=== PATIENT | male | born 1995 | race Caucasian/White ===

== ENCOUNTER 2020-08-17 21:22 | Emergency (ER) | payer OTHER ==
[2020-08-18] MEDS ORDERED: PROTONIX 40 MG40 M1 PO (14:58)
== END 2020-08-17 21:45 | disposition left against medical advice (07) ==
LOC: ER1 21:22
DX: K92.0 Hematemesis (principal); Z53.21 Procedure and treatment not carried out due to patient leaving prior to being seen by health care provider

== ENCOUNTER 2020-08-18 09:30 | Emergency (ER) | payer OTHER ==
[2020-08-18 10:41] LABS: HEMOGLOBIN 15.4 gm/dl (14.0-17.5); RED BLOOD COUNT 5.12 M/UL (4.20-5.50)
[2020-08-18 10:52] LABS: BUN/CREATININE RATIO 17 (0-10)
[2020-08-18] MEDS ORDERED: PROTONIX 40 MG40 M1 PO (14:58)
== END 2020-08-18 15:20 | disposition home or self-care (01) ==
LOC: ER1 09:30
PROVIDERS: Physician Assistant
DX: R10.13 Epigastric pain (principal); K92.0 Hematemesis; K31.89 Other diseases of stomach and duodenum; Z90.49 Acquired absence of other specified parts of digestive tract
CPT/HCPCS: 80053; 81001; 82550; 82553; 83874; 84484; 85025; 87040; 87086; 93005; 96374; 99285; C9113; J7030; Q9967

== ENCOUNTER 2020-08-20 15:29 | Emergency (ER) | payer OTHER ==
[~2020-08-20 15:29] MED LIST: PROTONIX 40 MG40 M1 PO
[2020-08-20 19:15] LABS: HEMOGLOBIN 16.3 gm/dl (14.0-17.5); RED BLOOD COUNT 5.3 M/UL (4.20-5.50)
[2020-08-20 19:16] LABS: WHITE BLOOD COUNT 8.5 K/UL (4.5-11.0)
[2020-08-20 19:35] LABS: BUN/CREATININE RATIO 19 (0-10)
[2020-08-20] MEDS ORDERED: ZOFRAN ODT 4 MG4 MG SL (20:34)
== END 2020-08-20 20:43 | disposition home or self-care (01) ==
LOC: ER1 15:29
DX: K29.70 Gastritis, unspecified, without bleeding (principal); Z79.899 Other long term (current) drug therapy
CPT/HCPCS: 80053; 83690; 85025; 96374; 96375; 99284; C9113; J2405

== ENCOUNTER → 2020-09-04 | Day surgery (SDC) | payer OTHER ==
[~2020-09-04] VITALS: Ht 180.3 cm; Wt 65.8 kg
[~2020-09-04] MED LIST changes: +LOTRIMIN CREAM45 GM TOP; +PHENERGAN 25 MG25 M1 PO; +PROMETHAZINE12.5 M1 PO; +ZOFRAN ODT 4 MG4 MG GT; +ZOFRAN ODT 4 MG4 MG SL
[2020-09-05 17:08] LABS: ENDOMYSIAL ANTIBODY IGA Negative (Negative); IMMUNOGLOBULIN A, QN, SERUM 290 mg/dL (90-386); T-TRANSGLUTAMINASE (TTG) IGA <2 U/mL (0-3); T-TRANSGLUTAMINASE (TTG) IGG <2 U/mL (0-5)
== END | disposition home or self-care (01) ==
LOC: OR 08:58
PROVIDERS: Internal Medicine Gastroenterology
DX: K29.50 Unspecified chronic gastritis without bleeding (principal); K21.00 Gastro-esophageal reflux disease with esophagitis, without bleeding; K31.9 Disease of stomach and duodenum, unspecified; Z87.891 Personal history of nicotine dependence; Z88.8 Allergy status to other drugs, medicaments and biological substances; Z79.899 Other long term (current) drug therapy
CPT/HCPCS: 36415; 80076; 82150; 82784; 83690; J2704; J7040

== ENCOUNTER 2020-12-25 03:14 | Emergency (ER) | payer OTHER ==
[~2020-12-25 03:14] MED LIST changes: -LOTRIMIN CREAM45 GM TOP; -PHENERGAN 25 MG25 M1 PO; -PROMETHAZINE12.5 M1 PO; -ZOFRAN ODT 4 MG4 MG GT
[2020-12-25 05:33] LABS: HEMOGLOBIN 13.9 gm/dl (14.0-17.5); RED BLOOD COUNT 4.54 M/UL (4.20-5.50); WHITE BLOOD COUNT 8.8 K/UL (4.5-11.0)
[2020-12-25 06:23] LABS: BUN/CREATININE RATIO 23 (0-10)
[2020-12-25] MEDS ORDERED: PHENERGAN 25 MG25 M1 PO (06:40)
[2020-12-25] MEDS ORDERED: ZOFRAN ODT 4 MG4 MG GT (06:40)
== END 2020-12-25 09:20 | disposition home or self-care (01) ==
LOC: ER1 03:14
PROVIDERS: Family Medicine
DX: R11.15 Cyclical vomiting syndrome unrelated to migraine (principal)
CPT/HCPCS: 80053; 83690; 84439; 84443; 85025; 96374; 99284; J2405

== ENCOUNTER 2020-12-27 12:06 | Emergency (ER) | payer OTHER ==
[~2020-12-27 12:06] MED LIST changes: +PHENERGAN 25 MG25 M1 PO; +ZOFRAN ODT 4 MG4 MG GT
[2020-12-27 13:16] LABS: HEMOGLOBIN 15.7 gm/dl (14.0-17.5); WHITE BLOOD COUNT 7.1 K/UL (4.5-11.0)
[2020-12-27 13:17] LABS: RED BLOOD COUNT 5.07 M/UL (4.20-5.50)
[2020-12-27 13:33] LABS: BUN/CREATININE RATIO 17 (0-10)
== END 2020-12-27 14:44 | disposition home or self-care (01) ==
LOC: ER1 12:06
PROVIDERS: Physician Assistant
DX: R11.2 Nausea with vomiting, unspecified (principal); R10.11 Right upper quadrant pain; R10.12 Left upper quadrant pain; Z90.49 Acquired absence of other specified parts of digestive tract
CPT/HCPCS: 80053; 83690; 85025; 99284

== ENCOUNTER 2020-12-29 08:41 | Emergency (ER) | payer OTHER ==
[2020-12-29 09:11] LABS: HEMOGLOBIN 16.9 gm/dl (14.0-17.5); RED BLOOD COUNT 5.46 M/UL (4.20-5.50); WHITE BLOOD COUNT 6.8 K/UL (4.5-11.0)
[2020-12-29 09:29] LABS: BUN/CREATININE RATIO 19 (0-10)
[2020-12-29] MEDS ORDERED: PROMETHAZINE12.5 M1 PO (10:31)
[2020-12-29] MEDS ORDERED: LOTRIMIN CREAM45 GM TOP (10:34)
== END 2020-12-29 10:55 | disposition home or self-care (01) ==
LOC: ER1 08:41
PROVIDERS: Physician Assistant
DX: R11.10 Vomiting, unspecified (principal); B35.8 Other dermatophytoses; Z90.49 Acquired absence of other specified parts of digestive tract
CPT/HCPCS: 80053; 82150; 83690; 85025; 96374; 99284; J2550; J7030